=== PATIENT | male | born 1975 | race Caucasian/White ===

== ENCOUNTER 2024-04-24 16:34 | Emergency (ER) | payer OTHER, SELFPAY ==
[2024-04-24 16:37] VITALS: BP 133/101; PULSE 68; RESP 16; TEMP 36.6; O2SAT 96; BMI 34.8
--- NOTE | 2024-04-24 16:53 | DI.RAD.S_ITS ---
PROCEDURE: XR CHEST 2V INDICATIONS: cough for one month TECHNIQUE: 2 views of the chest were acquired. COMPARISON: None. FINDINGS: Surgical changes and devices: None. Lungs and pleura: Lungs are clear. No pleural effusions or pneumothorax. Mediastinum: Mediastinal contours are normal. Heart size is normal. Bones and chest wall: No suspicious bony abnormalities. Soft tissues appear unremarkable. IMPRESSION: No acute cardiopulmonary abnormality is seen. Dictated by: Rich Harrell M.D. on 04/24/2024 at 17:13 Approved by: Rich Harrell M.D. on 04/24/2024 at 17:14
--- NOTE | 2024-04-24 17:32 | ED.SOB ---
HPI - SOB/Dyspnea <Nissa Dubon PA-C - Last Filed: 04/24/24 18:40> General Chief Complaint: Shortness of Breath/Dyspnea Stated Complaint: cold for about a month, cant taste or smell Time Seen by Provider: 04/24/24 17:20 Source: patient Mode of arrival: Ambulatory History of Present Illness HPI Narrative: Patient is a 48-year-old male that presents to the emergency room department today after he presented to the clinic to be seen for his longterm physical and then wanted to be seen for an ongoing cold that he has had. Patient was seen at the beginning of March for cough, cold, congestion productive cough was diagnosed with a viral URI, prescribed Tessalon Perles which he just finished. However he continues to have shortness of breath, productive cough, just feeling really run down. States he has not improving. Been doing [id number] nonsteroidals, Mucinex, and steam showers and going to the sauna. Patient denies recent travel, antibiotics, sick contacts. Currently has a DVT being treated with Xarelto low suspicion for pulmonary embolism, currently not tachycardic, not tachypneic, does not have a fever, and saturations are 96% on room air. Patient has no history or underlying history of respiratory issues or respiratory problems. Patient does not smoke, no recreational drug use, very rare alcohol usage. Patient mild central obesity, no major medical problems associated with his lungs. No history of TB, no chest pain. Dyspnea on exertion, still has shortness of breath at rest. Extreme productive deep cough sputum but no blood-tinged. No other physical complaints. Related Data Home Medications Medication Instructions Recorded Confirmed acetaminophen 325 mg tablet 650 mg PO Q6H PRN Pain (Scale 01/05/21 01/05/21 (Tylenol) Score 1-3) ibuprofen 200 mg tablet (Advil) 400 mg PO Q6H PRN Pain (Scale 01/05/21 01/05/21 Score 1-3) lidocaine 5 % topical patch 1 patch topical DAILY 01/05/21 01/05/21 omeprazole 20 mg capsule,delayed 20 mg PO DAILY 01/05/21 01/05/21 release Previous Rx's Medication Instructions Recorded albuterol sulfate 90 mcg/actuation 2 puff inhalation Q6H PRN 04/24/24 aerosol inhaler (Proventil HFA) shortness of breath or wheezing #6.7 grams azithromycin 250 mg tablet See Rx Instructions PO .COMPLEX #6 04/24/24 (Zithromax Z-Wesly) tabs prednisone 10 mg tablet 10 mg PO DIRECTED #12 tabs 04/24/24 Allergies Allergy/AdvReac Type Severity Reaction Status Date / Time No Known Drug Allergies Allergy Verified 01/05/21 15:32 Review of Systems <Nissa Dubon PA-C - Last Filed: 04/24/24 18:40> Review of Systems Narrative: Negative except as above Respiratory Comments: Cough congestion productive cough been ongoing since March Patient History <Nissa Dubon PA-C - Last Filed: 04/24/24 18:40> Social History Smoking Status: Never smoker Smoking Status: Never smoker Substance Use Type: does not use Exam <Nissa Dubon PA-C - Last Filed: 04/24/24 18:40> Initial Vital Signs Initial Vital Signs: Vital Signs Temperature 97.8 F 04/24/24 16:37 Pulse Rate 68 04/24/24 16:37 Respiratory Rate 16 04/24/24 16:37 Blood Pressure 133/101 H 04/24/24 16:37 Pulse Oximetry 96 04/24/24 16:37 Oxygen Delivery Method Room Air 04/24/24 16:37 Reviewed Const General: cooperative, healthy appearing, comfortable, well developed, well groomed, No acute distress and No in distress [facility] Head: normal to inspection, normocephalic, No atraumatic and No abrasion Nose: external nose normal and nares normal Eyes General: Yes appearance normal, both eyes and all related structures Pupils: PERRL and normal by confrontation EOM: EOM intact bilaterally Resp Auscultation: crackles, rhonchi and wheezes Cardio Rate: regular rate Rhythm: regular rhythm Heart Sounds: S1 normal and S2 normal Skin Other: Warm pink and dry Neuro Other: Cranial nerves are grossly intact, speech, gait, cognition are intact Extrem Other: Range of motion, strength, pulses, cap refill preserved in the upper and lower extremities Psych Other: Parents, mental state, speech, movement, mood, affect, attitude, thought process, thought content, judgment are all within normal limits <Hal Bailey MD - Last Filed: 04/24/24 22:12> Initial Vital Signs Initial Vital Signs: Vital Signs Temperature 97.8 F 04/24/24 16:37 Pulse Rate 68 04/24/24 16:37 Respiratory Rate 16 04/24/24 16:37 Blood Pressure 133/101 H 04/24/24 16:37 Pulse Oximetry 96 04/24/24 16:37 Oxygen Delivery Method Room Air 04/24/24 16:37 Scores <Nissa Dubon PA-C - Last Filed: 04/24/24 18:40> GCS Citation: 15 Course <Nissa Dubon PA-C - Last Filed: 04/24/24 18:40> Orders Ordered: ED Orders 04/24/24 16:53 XR chest 2V Stat 04/24/24 16:55 Covid-19 + FLU A/B + RSV - PCR Stat Discontinued Medications Albuterol/Ipratropium (Albuterol/Ipratropium 3 Ml Ampul) 3 ml INH NOW ONE Stop: 04/24/24 17:32 Last Admin: 04/24/24 17:39 Dose: 3 ml Documented By: JK Vital Signs Vital signs: Vital Signs - 8 hr 04/24/24 16:37 04/24/24 17:42 04/24/24 18:03 Temperature 97.8 F Pulse Rate 68 68 Respiratory Rate 16 Blood Pressure 133/101 H 132/78 Pulse Oximetry 96 94 Oxygen Delivery Method Room Air Room Air Room Air <Hal Bailey MD - Last Filed: 04/24/24 22:12> Orders Ordered: ED Orders 04/24/24 16:53 XR chest 2V Stat 04/24/24 16:55 Covid-19 + FLU A/B + RSV - PCR Stat Discontinued Medications Albuterol/Ipratropium (Albuterol/Ipratropium 3 Ml Ampul) 3 ml INH NOW ONE Stop: 04/24/24 17:32 Last Admin: 04/24/24 17:39 Dose: 3 ml Documented By: JK Vital Signs Vital signs: Vital Signs - 8 hr 04/24/24 16:37 04/24/24 17:42 04/24/24 18:03 Temperature 97.8 F Pulse Rate 68 68 Respiratory Rate 16 Blood Pressure 133/101 H 132/78 Pulse Oximetry 96 94 Oxygen Delivery Method Room Air Room Air Room Air MDM - SOB/Dyspnea <Nissa Dubon PA-C - Last Filed: 04/24/24 18:40> Lab Data Labs: Lab Results 04/24/24 Range/Units 16:55 SARS-CoV-2 (PCR) Negative (Negative) Influenza A (RT-PCR) Flu a negative (NEGATIVE) Influenza B (RT-PCR) Flu b negative (NEGATIVE) RSV (PCR) Negative (Negative) Imaging Data Chest x-ray: Radiologist's Impression: [address] [id number] XRay Report Signed Patient: Clyde Duncan MR#: [id number] : 1975 Acct:[id number] Age/Sex: 48 / M Date of Service: 04/24/24 Loc: ED Accession Number: [id number] Procedure: XR chest 2V Ordering Provider: Hal Bailey MD PROCEDURE: XR CHEST 2V INDICATIONS: cough for one month TECHNIQUE: 2 views of the chest were acquired. COMPARISON: None. FINDINGS: Surgical changes and devices: None. Lungs and pleura: Lungs are clear. No pleural effusions or pneumothorax. Mediastinum: Mediastinal contours are normal. Heart size is normal. Bones and chest wall: No suspicious bony abnormalities. Soft tissues appear unremarkable. IMPRESSION: No acute cardiopulmonary abnormality is seen. Dictated by: Rich Harrell M.D. on 04/24/2024 at 17:13 Approved by: Rich Harrell M.D. on 04/24/2024 at 17:14 [facility] Narrative Medical decision making narrative: Pleasant 48-year-old male presents to the emergency room department with several weeks of cough, cold, congestion ongoing since the beginning of March. [facility], wanted to be seen and assessed for cough cold, and congestion. They stated that he had an appointment that he could be seen for and schedule himself for next week. He had already been seen once in [facility] with limited relief. They told him that if he needed to be seen wanted to be seen today he needs to be seen in the emergency department so the patient presented to the emergency department here be evaluated. Chest x-ray is negative for any acute findings, COVID is negative, influenza is negative RSV is negative. However his exam shows the patient extremely congested, inspiratory and expiratory wheezing, productive cough. Currently at this time I am choosing to treat the patient as if he has bronchitis/pneumonia with antibiotics, prednisone, inhaler. Prescriptions have been sent to his pharmacy. Supportive therapy education ED precautions Differential diagnosis; COVID, influenza, RSV, viral infection, bronchitis, pneumonia. <Hal Bailey MD - Last Filed: 04/24/24 22:12> Lab Data Labs: Lab Results 04/24/24 Range/Units 16:55 SARS-CoV-2 (PCR) Negative (Negative) Influenza A (RT-PCR) Flu a negative (NEGATIVE) Influenza B (RT-PCR) Flu b negative (NEGATIVE) RSV (PCR) Negative (Negative) Discharge Plan Departure Patient Disposition: Home Clinical Impression: Bronchitis Activity Restrictions/Additional Instructions: Wiwh-ors-einlqef medications for runny nose Nasonex or Flonase followed by ocean spray. Sore throat cough drops, felt lozenges, Chloraseptic spray, salt water swish and spit. Dry cough Delsym wet cough Mucinex, TheraFlu, Vicks Vaporub, humidified air, steam showers. DayQuil, NyQuil. Plenty of rest, balanced diet, plenty of fluids. Three prescriptions have been sent to your pharmacy 1. Is an antibiotic please take it as prescribed. The next is an inhaler you can use this for shortness of breath and to help open up your lungs. The next is prednisone as a short course of medication that helps with inflammation. Please do not taking nonsteroidals such as ibuprofen while you are taking the prednisone. You can take Tylenol as needed for body aches. Your chest x-ray is negative for pneumonia however I am choosing to treat you with antibiotics since she had been dealing with this for such an extended period of time. Your COVID, RSV, influenza are all negative Prescriptions: New azithromycin [Zithromax Z-Wesly] 250 mg tablet See Rx Instructions .ROUTE .COMPLEX Qty: 6 0RF Rx Instructions: For 250 mg dose pack: take 500 mg today (day 1), then 250 mg for 4 days (days 2-5) prednisone 10 mg tablet 10 mg PO DIRECTED Qty: 12 0RF Rx Instructions: see taper instructions 30 mg 2 days, 20 mg 2 days, 10 mg 2 days. albuterol sulfate [Proventil HFA] 90 mcg/actuation HFA aerosol inhaler 2 puff inhalation Q6H PRN (Reason: shortness of breath or wheezing) Qty: 6.7 0RF No Action acetaminophen [Tylenol] 325 mg Tablet 650 mg PO Q6H PRN (Reason: Pain (Scale Score 1-3)) lidocaine 5 % Adhesive Patch,Medicated 1 patch TOPICAL DAILY ibuprofen [Advil] 200 mg Tablet 400 mg PO Q6H PRN (Reason: Pain (Scale Score 1-3)) omeprazole 20 mg Capsule,Delayed Release(Dr/Ec) 20 mg PO DAILY Stand Alone Forms: Patient Portal/API ED Sign-out <Hal Bailey MD - Last Filed: 04/24/24 22:12> Cosign ED Attending Cosignature Attestation: I was immediately available in the department for consultation. This documentation has been reviewed. Hal Bailey MD
--- NOTE | 2024-04-24 17:33 | PC.NURSE ---
patient was assessed by the provider and the nurse. the patient has been sick since the 2nd week in March with as cough and cold like symptoms. He was getting his half-way physical today for the and was told to make an appointment to have himself checked out but the next lolly was not for some time. so they said go to the ER. Provider stated lungs sounded like he has pneumonia. breathing treatment ordered
[2024-04-24] MEDS: ALBUTEROL/IPRATROPIUM 3 ML AMPUL INH (17:39)
[2024-04-24 17:47] LABS: Influenza A - CEPHEID Flu A NEGATIVE (NEGATIVE); Influenza B - CEPHEID Flu B NEGATIVE (NEGATIVE); Respiratory Syncytial Virus Negative (Negative)
[2024-04-24 17:49] LABS: COVID-19 CEPHEID 4-PLEX PCR Negative (Negative)
[2024-04-24 18:03] VITALS: BP 132/78; PULSE 68; O2SAT 94
== END 2024-04-24 18:03 | disposition home or self-care (01) ==
PROVIDERS: Emergency Medicine; Emergency Provider Physician Assistant
DX: J40 Bronchitis, not specified as acute or chronic (principal); Z11.52 Encounter for screening for COVID-19
CPT/HCPCS: 0241U; 71046; 99283